=== PATIENT | male | born 1965 | race Two or more races ===

== ENCOUNTER 2024-08-08 14:52 | Emergency (ER) | payer BC ==
[~2024-08-08] VITALS: Ht 188 cm; Wt 113.4 kg
[2024-08-08 15:11] VITALS: BP 153/95; O2SAT 97
[2024-08-08] MEDS ORDERED: TOPROL XL25 M1 PO (15:11)
[2024-08-08] MEDS ORDERED: TAMSULOSIN HCL 0.4 MG CAP PO ONE ×2 (16:45→17:17)
[2024-08-08] MEDS ORDERED: KETOROLAC TROMETHAMINE 60 MG VIAL IM ONE ×2 (16:45→17:17)
[2024-08-08] MEDS ORDERED: CEFTRIAXONE SODIUM 1,000 MG VIAL IV ONE (16:45)
[2024-08-08] MEDS ORDERED: CEFTRIAXONE SODIUM 1,000 MG VIAL ONE (17:17)
[2024-08-08 17:49] LABS: HEMATOCRIT 46.4 % (39.0-48.0); HEMOGLOBIN 16.1 g/dL (13-16.00); MEAN CELL VOLUME 84.4 fL (80.0-100.00); MEAN CORPUSCULAR HEMOGLOBIN 29.3 pg (27.00-32.0); MEAN CORPUSCULAR HGB CONC 34.7 g/dl (32.0-36.0); PLATELET COUNT 268 K/uL (150-450); RED CELL DISTRIBUTION WIDTH 13.7 % (11.5-14.5)
[2024-08-08 18:31] LABS: PH,URINE 6.5 (5.0-8.0); URINE APPEARANCE Clear; URINE BILIRRUBIN Negative (NEGATIVE); URINE BLOOD Large; URINE COLOR Yellow; URINE GLUCOSE Negative (NEGATIVE); URINE KETONE Trace (NEGATIVE); URINE LEUKOCYTE Negative; URINE NITRATE Negative; URINE PROTEIN Trace (NEGATIVE)
[2024-08-08 18:35] LABS: URINE EPITHELIAL CELLS 2.2 uL (0.0-38.8); URINE RBC 406.5 uL (0.0-20.8); URINE WBC 4.5 uL (0.0-23.2)
[2024-08-08 18:42] LABS: URINE CAST 0.14 uL (0.0-1.40)
[2024-08-08 20:00] LABS: ALBUMIN 3.9 gm/dL (3.4-5.0); BILIRUBIN TOTAL 1.46 mg/dL (0.3-1.2); CALCIUM 9.1 mg/dL (8.5-10.1); CREATININE SERUM 1.52 mg/dL (0.70-1.30); GFR 47.17; GLOBULINA 3.9 G/DL (2.4-3.5); POTASSIUM 4.99 mEq/L (3.5-5.1); TOTAL PROTEIN 7.8 gm/dL (6.4-8.2)
[2024-08-08] MEDS ORDERED: KETO10TA2 PO (23:05)
[2024-08-08] MEDS ORDERED: BACTRIM DS TAB1 EACH PO (23:05)
[2024-08-08] MEDS ORDERED: ZOFRAN8 MG PO (23:05)
[2024-08-08] MEDS ORDERED: PEPCID AC20 MG PO (23:05)
[2024-08-08] MEDS ORDERED: TAMS0.4C PO (23:05)
== END 2024-08-08 23:21 | disposition home or self-care (01) ==
LOC: ER 14:54
PROVIDERS: General Practice
DX: N20.0 Calculus of kidney (principal); R10.9 Unspecified abdominal pain; I10 Essential (primary) hypertension; E11.9 Type 2 diabetes mellitus without complications
CPT/HCPCS: 36415; 74177; Q9965